=== PATIENT | male | born 1960 | race Caucasian/White ===

== ENCOUNTER 2017-05-01 08:54 | Inpatient (IN) | payer OTHER ==
[2017-05-01] MEDS ORDERED: ONDANSETRON 4 MG/2 ML VIAL IVP ONE (09:15)
[2017-05-01] MEDS ORDERED: NS 1,000 ML IV ONE ×2 (09:15→09:56)
--- NOTE | 2017-05-01 09:19 | EDPHY ---
H & P Time Seen by Provider: 05/01/17 08:59 HPI/ROS: CHIEF COMPLAINT: Vomiting, diabetic, out of insulin HISTORY OF PRESENT ILLNESS: A 56-year-old male presents to the emergency department by ambulance requesting insulin. The patient has a history of type 1 diabetes since age 33. He ran out of his insulin 2 days ago. He is from [place], [place] and has been in the [facility] for the last 4 months. He is homeless. He has a history of lung cancer and had partial lobectomy of the right lung in 2014 and has follow-up with his oncologist in May in [place]. No fevers or chills. No chest pain or difficulty breathing. No neck or back pain. States this morning he woke up vomiting. He has had this in the past when he has run out of his insulin. No urinary symptoms. No diarrhea. REVIEW OF SYSTEMS: Constitutional: No fever, no chills. Eyes: No double or blurry vision. ENT: No sore throat. Respiratory: No cough, no shortness of breath. Cardiac: No chest pain. Gastrointestinal: Vomiting as above. No abdominal pain or diarrhea Genitourinary: No dysuria. Musculoskeletal: No neck or back pain. Skin: No rashes. Neurological: No headache. Past Medical/Surgical History: Type 1 diabetic since age 33, lung cancer with history of right partial lobectomy 2014 Social History: Homeless from [place] Smoking Status: Current every day smoker Physical Exam: General Appearance: Alert, vomiting. Vital signs are stable. Eyes: Pupils equal and round. Extraocular motions are all intact. ENT: Mouth: Mucous membranes moist. Respiratory: No wheezing, rhonchi, or rales, lungs are clear to auscultation. Well-healed surgical scar noted to the right posterior mid back. Cardiovascular: Regular rate and rhythm. Gastrointestinal: Abdomen is soft and nontender, no masses, no rebound or guarding, bowel sounds normal. Neurological: Alert and oriented x 3, cranial nerves II through XII grossly intact Skin: Warm and dry, no rashes. Musculoskeletal: Nontender to palpate along the cervical, thoracic or lumbar spine. Neck is supple. Extremities: Full range of motion and no peripheral edema. Psychiatric: Patient is oriented X 3, there is no agitation. Constitutional: Initial Vital Signs Temperature (C) 36.7 C 05/01/17 09:01 Heart Rate 89 08/05/17 09:01 Respiratory Rate 18 05/01/17 09:01 Blood Pressure 116/89 H 05/01/17 09:01 O2 Sat (%) 98 05/01/17 09:01 O2 Delivery Mode Room Air Allergies/Adverse Reactions: No Known Drug Allergies Allergy (Verified 05/01/17 09:07) Home Medications: Medication Instructions Recorded Insulin Lispro [humALOG LISPRO 100 25 unit SC QIDMEAL 05/01/17 units/ml (*)] Tamsulosin HCl [Flomax 0.4 MG (*)] 0.4 mg PO DAILY 05/01/17 Medical Decision Making ED Course/Re-evaluation: 56-year-old male presents to the emergency department vomiting and out of insulin for last 2 days. He is homeless. An IV was established and the patient was given IV Zofran, IV Phenergan, and IV Ativan for his nausea and vomiting. He also received IV normal saline. He had a blood sugar of 503. He had a CO2 of 11. Calculated anion gap of 25. The patient was found to be in diabetic ketoacidosis. He was given 2 L of IV normal saline and DKA protocol was initiated including 10 units of regular insulin and insulin drip administered. Patient will be admitted to Dr. Goran De Jesus to the ICU. The case was discussed with Dr. Arabella Jennings, supervising physician who did not directly evaluate the patient but agrees with treatment and plan. Differential Diagnosis: Including but not limited to diabetic ketoacidosis, hyperglycemia, dehydration, hyperemesis cannabinoid syndrome, electrolyte abnormality - Data Points Laboratory Results: Laboratory Results 05/01/17 08:59 05/01/17 08:59 05/01/17 05/01/17 05/01/17 08:59 08:59 08:59 WBC 12.53 10^3/uL H 10^3/uL (3.80-9.50) RBC 6.33 10^6/uL 10^6/uL (4.40-6.38) Hgb 13.5 g/dL L g/dL (13.7-17.5) POC Hgb Hct 43.1 % % (40.0-51.0) POC Hct MCV 68.1 fL L fL (81.5-99.8) MCH 21.3 pg L pg (27.9-34.1) MCHC 31.3 g/dL L g/dL (32.4-36.7) RDW 19.0 % H % (11.5-15.2) Plt Count 306 10^3/uL 10^3/uL (150-400) MPV 10.4 fL fL (8.7-11.7) Neut % (Auto) 62.1 % % (39.3-74.2) Lymph % (Auto) 32.7 % % (15.0-45.0) [place]ter[place] % (Auto) 3.3 % L % (4.5-13.0) Eos % (Auto) 0.4 % L % (0.6-7.6) Baso % (Auto) 0.9 % % (0.3-1.7) Nucleat RBC Rel Count 0.2 % % (0.0-0.2) Absolute Neuts (auto) 7.79 10^3/uL H 10^3/uL (1.70-6.50) Absolute Lymphs (auto) 4.10 10^3/uL H 10^3/uL (1.00-3.00) Absolute Monos (auto) 0.41 10^3/uL 10^3/uL (0.30-0.80) Absolute Eos (auto) 0.05 10^3/uL 10^3/uL (0.03-0.40) Absolute Basos (auto) 0.11 10^3/uL H 10^3/uL (0.02-0.10) Absolute Nucleated RBC 0.02 10^3/uL H 10^3/uL (0-0.01) Immature Gran % 0.6 % % (0.0-1.1) Immature Gran # 0.07 10^3/uL 10^3/uL (0.00-0.10) Platelet Estimate ADEQUATE (ADEQ) Polychromasia 1+ H Hypochromasia 1+ H Microcytic Cells 1+ H Smear Review By Pending POC Sodium Sodium 137 mEq/L mEq/L (134-144) POC Potassium Potassium 5.0 mEq/L mEq/L (3.5-5.2) POC Chloride Chloride 101 mEq/L mEq/L (97-110) Carbon Dioxide 11 mEq/l L mEq/l (22-31) Anion Gap 25 mEq/L H mEq/L (8-16) POC BUN BUN 13 mg/dL mg/dL (7-23) Creatinine 0.8 mg/dL mg/dL (0.7-1.3) POC Creatinine Estimated GFR > 60 Glucose 503 mg/dL H* mg/dL (70-100) POC Glucose Calcium 9.2 mg/dL mg/dL (8.5-10.4) Phosphorus 4.4 mg/dL mg/dL (2.5-4.5) Magnesium 2.1 mg/dL mg/dL (1.6-2.3) Beta-Hydroxybutyrate 8.46 mmol/L H mmol/L (0.02-0.27) 05/01/17 08:55 WBC RBC Hgb POC Hgb 16.3 gm/dL gm/dL (13.7-17.5) Hct POC Hct 48 % % (40-51) MCV MCH MCHC RDW Plt Count MPV Neut % (Auto) Lymph % (Auto) Otero % (Auto) Eos % (Auto) Baso % (Auto) Nucleat RBC Rel Count Absolute Neuts (auto) Absolute Lymphs (auto) Absolute Monos (auto) Absolute Eos (auto) Absolute Basos (auto) Absolute Nucleated RBC Immature Gran % Immature Gran # Platelet Estimate Polychromasia Hypochromasia Microcytic Cells Smear Review By POC Sodium 135 mEq/L mEq/L (134-144) Sodium POC Potassium 4.7 mEq/L mEq/L (3.3-5.0) Potassium POC Chloride 104 mEq/L mEq/L (97-110) Chloride Carbon Dioxide Anion Gap POC BUN 13 mg/dL mg/dL (7-23) BUN Creatinine POC Creatinine 0.7 mg/dL mg/dL (0.7-1.3) Estimated GFR Glucose POC Glucose 457 mg/dL H mg/dL (70-100) Calcium Phosphorus Magnesium Beta-Hydroxybutyrate Medications Given: Discontinued Medications Sodium Chloride (Ns) 1,000 mls @ 0 mls/hr IV ONCE ONE PRN Reason: Wide Open Stop: 05/01/17 09:16 Last Admin: 05/01/17 09:23 Dose: 1,000 mls Sodium Chloride (Ns) 1,000 mls @ 0 mls/hr IV ONCE ONE; Wide Open PRN Reason: Protocol Stop: 05/01/17 09:57 Last Admin: 05/01/17 10:11 Dose: 1,000 mls Insulin Human Regular (Humulin R) 10 unit IVP EDNOW ONE Stop: 05/01/17 09:58 Last Admin: 05/01/17 10:10 Dose: 10 units Lorazepam (Ativan Injection) 1 mg IVP EDNOW ONE Stop: 05/01/17 09:53 Last Admin: 05/01/17 10:01 Dose: 1 mg Ondansetron HCl (Zofran) 4 mg IVP EDNOW ONE Stop: 05/01/17 09:16 Last Admin: 05/01/17 09:23 Dose: 4 mg Point of Care Test Results: 05/01/17 08:55 POC Sodium 135 POC Potassium 4.7 POC Chloride 104 POC BUN 13 POC Creatinine 0.7 POC Glucose 457 H Departure - Departure Disposition: [facility] Inpatient Acute Clinical Impression: Diabetic ketoacidosis Qualifiers: Diabetes mellitus type: type 1 Diabetes mellitus complication detail: without coma Qualified Code(s): E10.10 - Type 1 diabetes mellitus with ketoacidosis without coma Condition: Good
[2017-05-01 09:20] LABS: ADD DIFF? NO; ADD MORPH? YES; ADD SCAN? NO; FRAGMENT RBC FLAG 20 (0-99); LEFT SHIFT FLG 0 (0-99); LIPEMIA HEMOLYSIS FLAG 80 (0-99); PLATELET CLUMPS FLAG 0 (0-99)
[2017-05-01 09:28] LABS: % IMMATURE GRANULYOCYTES 0.6 % (0.0-1.1); ABSOLUTE IMMATURE GRANULOCYTES 0.07 10^3/uL (0.00-0.10); ABSOLUTE NRBC COUNT 0.02 10^3/uL (0-0.01); ATYPICAL LYMPHOCYTE FLAG 10 (0-99); HEMATOCRIT 43.1 % (40.0-51.0); HEMOGLOBIN 13.5 g/dL (13.7-17.5); MEAN CELL HEMOGLOBIN 21.3 pg (27.9-34.1); MEAN CELL HEMOGLOBIN CONCENTR. 31.3 g/dL (32.4-36.7); MEAN PLATELET VOLUME 10.4 fL (8.7-11.7); NRBC-AUTO% 0.2 % (0.0-0.2); PLATELET COUNT 306 10^3/uL (150-400); RED BLOOD CELL COUNT 6.33 10^6/uL (4.40-6.38)
[2017-05-01 09:29] LABS: MEAN CELL VOLUME 68.1 fL (81.5-99.8)
[2017-05-01] MEDS ORDERED: PROMETHAZINE HCL 25 MG/ML INJ IVP ONE (09:39)
[2017-05-01 09:40] LABS: ANION GAP 25 mEq/L (8-16); CALCIUM 9.2 mg/dL (8.5-10.4); CARBON DIOXIDE 11 mEq/l (22-31); CHLORIDE 101 mEq/L (97-110); CREATININE 0.8 mg/dL (0.7-1.3); GLOMERULAR FILTRATION RATE > 60; SODIUM 137 mEq/L (134-144)
[2017-05-01 09:51] LABS: GLUCOSE 503 mg/dL (70-100)
[2017-05-01 09:52] LABS: HYPOCHROMIA 1+; MICROCYTES 1+; POLYCHROMASIA 1+
[2017-05-01] MEDS ORDERED: LORazepam 2 MG/ML INJ IVP ONE (09:52)
[2017-05-01 09:53] LABS: PLATELET ESTIMATE ADEQUATE (ADEQ)
[2017-05-01] MEDS ORDERED: INSULIN REGULAR HUMAN 100 UNIT, COSIGN. REQUIRED 1 EA in NS 100 ML IV ONE (09:57)
[2017-05-01] MEDS ORDERED: INSULIN REGULAR HUMAN 100 UNIT/ML IVP ONE (09:57)
[2017-05-01 10:19] LABS: MAGNESIUM 2.1 mg/dL (1.6-2.3)
[2017-05-01 11:05] LABS: B-HYDROXYBUTYRATE 8.46 mmol/L (0.02-0.27)
[2017-05-01] MEDS ORDERED: ACETAMINOPHEN 325 MG TAB PO PRN (13:46)
[2017-05-01] MEDS ORDERED: ONDANSETRON 4 MG/2 ML VIAL IVP PRN (13:46)
[2017-05-01] MEDS ORDERED: PROMETHAZINE HCL 25 MG/ML INJ IVP PRN (13:46)
[2017-05-01] MEDS ORDERED: NICOTINE 21 MG/24 HR PATCH TD PRN (13:46)
--- NOTE | 2017-05-01 14:03 | GHP ---
[f rep st] HISTORY AND PHYSICAL DATE OF ADMISSION: 05/01/2017 CHIEF COMPLAINT: Nausea, vomiting and out of control blood sugars. HISTORY OF PRESENT ILLNESS: This is a 56-year-old male, diagnosed with diabetes type 1 at age 33 wh o has been out of his insulin for the past 2-days. He presented to the emergency department with na usea and vomiting that began at 3 a.m. this morning. He is from [place], [place], has been in [facility] for the past 4-months and has been living on the streets. He denies any fevers or chills. He de nies any chest pain. He denies any shortness of breath, but he has been coughing today. The cough is dry and nonproductive. He denies any shortness of breath. PAST MEDICAL HISTORY: 1. Type 1 diabetes, diagnosed at age 33. 2. Lung cancer, status post right partial lobectomy in 2015. HOME MEDICATIONS: Reviewed, refer to gripNote for details. ALLERGIES: No known drug allergies. SOCIAL HISTORY: He is homeless. He denies any alcohol or illicit drug use. He does smoke. FAMILY HISTORY: Reviewed and noncontributory. REVIEW OF SYSTEMS: Comprehensive 10-point Review of Systems was done and is negative, except for as mentioned in the HPI. PHYSICAL EXAMINATION: VITAL SIGNS: Blood pressure 138/70, pulse of 80, respiratory rate 14, O2 sat uration 94% on room air. Temperature afebrile. GENERAL: No acute distress. Ketotic odor. HEAD: Normocephalic, atraumatic. EYES: PERRLA. Sclerae anicteric. MOUTH: Dry oral mucosa. NECK: Costello pple. No lymphadenopathy. CARDIOVASCULAR: S1 and S2, no murmurs, rubs, clicks, gallops, or JVD. No lower extremity edema. PULMONARY: Lungs are clear. No wheezes, rales, or rhonchi. ABDOMEN: S oft, nontender, nondistended. No guarding or rebound tenderness. Normoactive bowel sounds. EXTREM ITIES: No clubbing or cyanosis. NEURO: Cranial nerves 2 through 12 grossly intact. No focal, mot or or sensory deficits. SKIN: Clear no rashes. DIAGNOSTICS: WBC is 12.5, hemoglobin 13.5, hematocrit 43.1, platelets 306, sodium 137, potassium 5, chloride 101, CO2 11, BUN 13, creatinine 0.8, glucose 503, anion gap was 25. Beta hydroxybutyrate elevated at 8.46. ASSESSMENT AND PLAN: This is a 56-year-old male, type 1 diabetes presenting with: 1. Diabetic ketoacidosis most likely due to medication noncompliance since he is out of his usual h ome insulin. 2. Nausea and vomiting due to above. PLAN: 1. The patient will be admitted to the intensive care unit where he will be started on DKA protocol . 2. Fluids and IV insulin will be continued until his anion gap has closed and he is tolerating a re gular diet. 3. Will obtain a baseline EKG. 4. Chest x-ray, given his cough to evaluate for pneumonia. /[id number]/MODL
[2017-05-01] MEDS ORDERED: INSULIN REGULAR HUMAN 100 UNIT in NS 100 ML IV SCH (14:15)
[2017-05-01] MEDS ORDERED: INSULIN REGULAR HUMAN 100 UNIT/ML IVP PRN (14:15)
[2017-05-01] MEDS ORDERED: D50W 25 GM/50 ML SYR IVP PRN (14:15)
[2017-05-01] MEDS ORDERED: PROTOCOL MAGNESIUM 1 DOSE IV PRN (14:30)
[2017-05-01] MEDS ORDERED: PROTOCOL POTASSIUM 1 DOSE MISC PRN (14:30)
--- NOTE | 2017-05-01 15:20 | CPEKG ---
Heart Rate: 72 RR Interval: 833 P-R Interval: 140 QRSD Interval: 96 QT Interval: 384 QTC Interval: 421 P [place]: 54 QRS [place]: 47 T Wave [place]: 31 EKG Severity - NORMAL ECG - EKG Impression: SINUS RHYTHM Electronically Signed By: Sekou Peralta 02-May-2017 06:43:10
[2017-05-01] MEDS ORDERED: NS 1,000 ML IV SCH (15:30)
[2017-05-01 18:32] LABS: COLOR YELLOW; LEUKOCYTE ESTERASE,URINE NEGATIVE (NEGATIVE); NITRITE,URINE NEGATIVE (NEGATIVE)
[2017-05-01 18:36] LABS: MUCUS TRACE /lpf (NONE-1+)
[2017-05-01] MEDS: D5W 1,000 ML IV SCH (19:00)
[2017-05-01] MEDS: NS W/ 20 KCl/L 1,000 ML IV SCH ×2 (19:00→22:15)
[2017-05-01 20:56] LABS: PLATELET COUNT 261 10^3/uL (150-400)
[2017-05-01 21:14] LABS: ALANINE AMINOTRANSFERASE 29 IU/L (21-72); ALBUMIN 2.8 g/dL (3.5-5.0); ALKALINE PHOSPHATASE 89 IU/L (38-126); ANION GAP 8 mEq/L (8-16); ASPARTATE AMINOTRANSFERASE 15 IU/L (17-59); BILIRUBIN,TOTAL 0.6 mg/dL (0.1-1.4); CALCIUM 7.9 mg/dL (8.5-10.4); CARBON DIOXIDE 20 mEq/l (22-31); CHLORIDE 109 mEq/L (97-110); CHOLESTEROL 172 mg/dL (140-220); CHOLESTEROL/HDL RATIO 4.41 RATIO (1.00-4.97); CREATININE 0.6 mg/dL (0.7-1.3); GLOMERULAR FILTRATION RATE > 60; GLUCOSE 157 mg/dL (70-100); HIGH DENSITY LIPOPROTEIN 39 mg/dL (40-65); LDL/HDL RATIO 2.41 RATIO (1.00-3.64); LOW DENSITY LIPOPROTEIN 94 mg/dL (80-100); NON-HIGH DENSITY LIPOPROTEIN 133 mg/dL (90-129); POTASSIUM 4.2 mEq/L (3.5-5.2); SODIUM 137 mEq/L (134-144); TOTAL PROTEIN 5.3 g/dL (6.3-8.2); TRIGLYCERIDE 199 mg/dL (40-150); VERY LOW DENSITY LIPOPROTEINS 39 mg/dL (8-25)
[2017-05-01 21:17] LABS: PROTIME(PATIENT) 14.1 SEC (12.0-15.0)
[2017-05-01 21:19] LABS: APTT 25.9 SEC (23.0-38.0); FIBRINOGEN 244 mg/dL (214-456)
[2017-05-02] MEDS ORDERED: INSULIN GLARGINE 100 UNIT/ML VIAL SC SCH
[2017-05-02] MEDS ORDERED: INSULIN LISPRO 100 UNIT/ML SC SCH
[2017-05-02] MEDS: D5W 1,000 ML IV SCH ×2 (01:00→05:51)
[2017-05-02 01:07] LABS: ANION GAP 6 mEq/L (8-16); CARBON DIOXIDE 20 mEq/l (22-31); CHLORIDE 111 mEq/L (97-110); CREATININE 0.6 mg/dL (0.7-1.3); GLOMERULAR FILTRATION RATE > 60; GLUCOSE 93 mg/dL (70-100); POTASSIUM 3.7 mEq/L (3.5-5.2); SODIUM 137 mEq/L (134-144)
[2017-05-02] MEDS ORDERED: POTASSIUM Cl (KCl) 50 ML IV ONE (01:18)
[2017-05-02] MEDS: NS W/ 20 KCl/L 1,000 ML IV SCH (01:21)
[2017-05-02] MEDS ORDERED: INSULIN GLARGINE 100 UNITS/ML SYRINGE SC ONE (03:13)
[2017-05-02 04:11] LABS: % IMMATURE GRANULYOCYTES 0.4 % (0.0-1.1); ABSOLUTE IMMATURE GRANULOCYTES 0.04 10^3/uL (0.00-0.10); ADD DIFF? NO; ADD MORPH? YES; ADD SCAN? NO; ATYPICAL LYMPHOCYTE FLAG 10 (0-99); FRAGMENT RBC FLAG 0 (0-99); HEMATOCRIT 33.8 % (40.0-51.0); HEMOGLOBIN 10.8 g/dL (13.7-17.5); LEFT SHIFT FLG 0 (0-99); LIPEMIA HEMOLYSIS FLAG 80 (0-99); MEAN CELL HEMOGLOBIN 21.5 pg (27.9-34.1); MEAN PLATELET VOLUME 9.9 fL (8.7-11.7); PLATELET CLUMPS FLAG 0 (0-99); PLATELET COUNT 244 10^3/uL (150-400); RED BLOOD CELL COUNT 5.03 10^6/uL (4.40-6.38); RED CELL DISTRIBUTION WIDTH 17.6 % (11.5-15.2)
[2017-05-02 04:16] LABS: MEAN CELL VOLUME 67.2 fL (81.5-99.8)
[2017-05-02 04:28] LABS: CALCIUM 7.9 mg/dL (8.5-10.4); CARBON DIOXIDE 22 mEq/l (22-31); CHLORIDE 111 mEq/L (97-110); CREATININE 0.6 mg/dL (0.7-1.3); GLOMERULAR FILTRATION RATE > 60; GLUCOSE 104 mg/dL (70-100); MAGNESIUM 1.8 mg/dL (1.6-2.3); SODIUM 136 mEq/L (134-144)
[2017-05-02 04:37] LABS: ANION GAP 3 mEq/L (8-16)
[2017-05-02 05:23] LABS: HYPOCHROMIA 1+; MICROCYTES 2+; POLYCHROMASIA 1+
[2017-05-02 05:24] LABS: PLATELET ESTIMATE ADEQUATE (ADEQ)
[2017-05-02] MEDS ORDERED: MAGNESIUM SULF 1 GM/DEXTROSE 100 ML IV ONE (05:30)
[2017-05-02 06:12] VITALS: BP 111/74; PULSE 64; RESP 17; TEMP 98.8; O2SAT 97
[2017-05-02] MEDS ORDERED: D10W 250 ML PRN HYPOGLYCEMIA IV (08:30)
[2017-05-02] MEDS ORDERED: TAMSULOSIN HCL 0.4 MG CAP PO SCH (09:00)
[2017-05-02] MEDS ORDERED: ENOXAPARIN 40 MG/0.4 ML SYR SC SCH (09:00)
[2017-05-02] MEDS ORDERED: D50W 25 GM/50 ML SYR IVP PRN (12:00)
--- NOTE | 2017-05-02 12:05 | GDS ---
[f rep st] DISCHARGE SUMMARY DISCHARGE DIAGNOSES: 1. Diabetic ketoacidosis. 2. Insulin noncompliance. 3. Nausea and vomiting due to above. HOSPITAL COURSE STATED BY PROBLEM: Diabetic ketoacidosis due to medication noncompliance: The karen ent presented to the emergency department with nausea and vomiting, and was found to have a metaboli c anion gap acidosis with a gap of 25. His initial CO2 was 11. Beta hydroxybutyrate was done that was elevated at 8.46. Subsequently the patient was placed in the intensive care unit where he was started on the DKA tanvir col where we treated him with IV hydration and IV insulin. On day of discharge, his anion gap has c losed. He is tolerating a regular diet. He plans to have his insulin filled later on today. PHYSICAL EXAM: VITAL SIGNS: On day of discharge, blood pressure 111/74, pulse 64, respiratory rate 17, O2 sat 97% on 2 L. Temperature afebrile. GENERAL: No acute distress. HEART: S1, S2. LUNGS: Clear. ABDOMEN: Soft, nontender, nondistended. No guarding or rebound tenderness. Normoactive bowel sounds. PERTINENT LABS AND STUDIES: Done on this hospital stay: EKG done on admission, sinus rhythm, rate 72 beats per minute, no acute ischemic changes. Chest x-ray was done that was negative for pneumoni a. DISCHARGE MEDICATIONS: Please refer to discharge medication reconciliation in [facility] for details. DISCHARGE INSTRUCTIONS: The patient will be discharged from the hospital where he was urged to cont inue his insulin therapy. He was seen by Case Management who is trying to arrange outpatient follow up with him at the [facility]. /[id number]/MODL
[2017-05-02] MEDS ORDERED: INSULIN REGULAR HUMAN 100 UNIT/ML SC SCH (17:30)
[2017-05-03 02:39] LABS: HEMOGLOBIN A1C 8.3 % (4.0-6.0)
== END 2017-05-02 14:24 | disposition home or self-care (01) | DRG 639 ==
LOC: F2N 13:52
PROVIDERS: ADMIT Family Medicine; ATTEND Family Medicine
PROC: 02HV33Z Insertion of Infusion Device into Superior Vena Cava, Percutaneous Approach (ICD-10-PCS; principal; 2017-05-01)
DX: E10.10 Type 1 diabetes mellitus with ketoacidosis without coma (principal); T38.3X6A Underdosing of insulin and oral hypoglycemic [antidiabetic] drugs, initial encounter; Z85.118 Personal history of other malignant neoplasm of bronchus and lung; Z59.0 Homelessness; Z90.2 Acquired absence of lung [part of]
CPT/HCPCS: 82947-QW; 96374; C1751; J1650; J1815; J2060; J2405; J2550; J3475

== ENCOUNTER 2018-07-17 23:39 | Emergency (ER) | payer OTHER ==
[2018-07-18] MEDS ORDERED: INSULIN LISPRO 100 UNIT/ML SC ONE (00:06)
--- NOTE | 2018-07-18 00:24 | EDPHY ---
H & P Stated Complaint: hyperglycemic Time Seen by Provider: 07/17/18 23:43 HPI/ROS: Chief Complaint: High blood sugar HPI: 57-year-old type 1 diabetic male presenting complaining of high blood sugar. Patient states that he has been in skilled nursing for the last 2 nights. He is discharged this morning. The time of discharge at 10:00 a.m. He was given 10 units of Humalog. He has not had any other insulin for the wrist today. Patient states that they were unable to find his insulin when he was released from skilled nursing. Denies any nausea or vomiting. No abdominal pain. He has been admitted for DKA in the past. No fevers or chills. No cough. He checked his blood sugar was in the 400s. ROS: 10 systems were reviewed and were negative except those elements noted in the HPI. PMH: Type 1 diabetes Social History: No smoking, no alcohol, no recreational drug use Family History: non-contributory Physical Exam: Gen: Awake, Alert, No Distress HEENT: Nose: no rhinorrhea Eyes: PERRLA, EOMI Mouth: Moist mucosa Neck: Supple, no JVD Chest: nontender, lungs clear to auscultation Heart: S1, S2 normal, no murmur Abd: Soft, non-tender, no guarding Back: no CVA tenderness, no midline tenderness Ext: no edema, non-tender Skin: no rash Neuro: CN II-XII intact, Sensation grossly intact, Strength 5/5 in bilateral upper and lower extremities - Personal History Current Tetanus/Diphtheria Vaccine: Yes Current Tetanus Diphtheria and Acellular Pertussis (TDAP): Yes - Medical/Surgical History Hx Asthma: No Hx Chronic Respiratory Disease: Yes Hx Diabetes: Yes Hx Cardiac Disease: No Hx Renal Disease: No Hx Cirrhosis: No Hx Alcoholism: No Hx HIV/AIDS: No Hx Splenectomy or Spleen Trauma: No Other PMH: R lobectomy, DM I - Social History Smoking Status: Current every day smoker Constitutional: Initial Vital Signs Temperature (C) 36.8 C 07/17/18 23:45 Heart Rate 75 07/17/18 23:45 Respiratory Rate 16 07/17/18 23:45 Blood Pressure 165/83 H 07/17/18 23:45 O2 Sat (%) 93 07/17/18 23:45 O2 Delivery Mode Room Air Allergies/Adverse Reactions: codeine Allergy (Verified 10/21/18 23:46) Home Medications: Medication Instructions Recorded Tamsulosin HCl [Flomax 0.4 MG (*)] 0.4 mg PO DAILY 05/01/17 Insulin Detemir [Levemir] 15 unit SQ HS #1 vial 05/02/17 Insulin Lispro [humALOG LISPRO 100 8 unit SC QIDMEAL #1 vial 05/02/17 units/ml (*)] Medical Decision Making ED Course/Re-evaluation: Patient's blood sugars 480s. He is not acidotic. Patient states he would normally give himself about 40 units. I think 20 would be appropriate so we agreed to give him 30. Patient blood sugar down to 300. He is asking to go home. States that he can manage himself. He will follow up with [facility] to get insulin. Does not wish to remain in the emergency department. - Data Points Laboratory Results: 07/18/18 07/18/18 07/17/18 01:17 00:00 23:54 POC Hgb 14.3 gm/dL gm/dL (13.7-17.5) POC Hct 42 % % (40-51) POC Blood Source VENOUS Patient Temperature 36.8 DEGREES DEGREES POC VBG pH 7.42 (7.31-7.42) POC VBG pCO2 30 mmHg L mmHg (40-44) POC VBG pO2 57 mmHg H mmHg (35-40) POC VBG HCO3 20 mEq/L L mEq/L (22-26) POC VBG Total CO2 20 mEq/L L mEq/L (21-27) POC VBG Base Excess -5.0 mEq/L L mEq/L (-2.5-2.5) POC Mix VBG O2 Sat 91 % H % (65-75) POC Sodium 136 mEq/L mEq/L (135-145) POC Potassium 4.4 mEq/L mEq/L (3.3-5.0) POC Chloride 102 mEq/L mEq/L (97-110) POC BUN 19 mg/dL mg/dL (7-23) POC Creatinine 0.8 mg/dL mg/dL (0.7-1.3) POC Glucose 306 mg/dL H mg/dL 486 mg/dL H mg/dL (70-100) (70-100) POC Lactic Acid Quinn 1.2 mmol/L mmol/L (0.7-2.1) Medications Given: Discontinued Medications Insulin Human Lispro (Humalog Lispro) 30 unit SC EDNOW ONE Stop: 07/18/18 00:07 Last Admin: 07/18/18 00:11 Dose: 30 units Point of Care Test Results: Chemistry 07/18/18 07/17/18 01:17 23:54 POC Sodium 136 mEq/L mEq/L (135-145) POC Potassium 4.4 mEq/L mEq/L (3.3-5.0) POC Chloride 102 mEq/L mEq/L (97-110) POC BUN 19 mg/dL mg/dL (7-23) POC Creatinine 0.8 mg/dL mg/dL (0.7-1.3) POC Glucose 306 mg/dL H mg/dL 486 mg/dL H mg/dL (70-100) (70-100) Blood Gas/Lactic Acid-Arterial 07/18/18 00:00 POC Blood Source VENOUS Blood Gas/Lactic Acid-Venous 07/18/18 00:00 POC VBG pH 7.42 (7.31-7.42) POC VBG pCO2 30 mmHg L mmHg (40-44) POC VBG pO2 57 mmHg H mmHg (35-40) POC VBG HCO3 20 mEq/L L mEq/L (22-26) POC VBG Total CO2 20 mEq/L L mEq/L (21-27) POC VBG Base Excess -5.0 mEq/L L mEq/L (-2.5-2.5) POC Mix VBG O2 Sat 91 % H % (65-75) POC Lactic Acid Quinn 1.2 mmol/L mmol/L (0.7-2.1) ISTAT H&H 07/17/18 23:54 POC Hgb 14.3 gm/dL gm/dL (13.7-17.5) POC Hct 42 % % (40-51) Departure - Departure Disposition: Home, Routine, Self-Care Clinical Impression: Hyperglycemia Condition: Good Instructions: Diabetic Hyperglycemia (ED) Additional Instructions: Resume your normal diabetes management. Follow up with [facility] in 2-3 days for further care. Referrals: [facility],. [Clinic] - As per Instructions
[2018-07-18 02:15] VITALS: BP 110/72
== END 2018-07-18 02:14 | disposition home or self-care (01) ==
LOC: EDBD → EDUNIT#
DX: E10.65 Type 1 diabetes mellitus with hyperglycemia (principal)
CPT/HCPCS: 82435-PO; 82565-PO; 82947-PO; 83605-PO; 84132-PO; 84295-PO; 84520-PO; 85014-PO; J1815